=== PATIENT | male | born 2000 | race Two or more races ===

== ENCOUNTER 2024-01-18 09:05 | Emergency (ER) | payer BC, OTHER ==
[~2024-01-18] VITALS: Ht 177.8 cm; Wt 113.8 kg
[2024-01-18 09:38] LABS: Basophils # (auto) 0 10 ^3/uL (0-0.2); Basophils % (auto) 0.3 % (0.0-2.0); Eosinophils # (auto) 0.3 10 ^3/uL (0-0.8); Eosinophils % (auto) 2.9 % (0.0-7.0); Hematocrit 46.2 % (41.0-53.0); Hemoglobin 15.6 g/dL (13.5-17.5); Lymphocytes # (auto) 2.6 10 ^3/uL (0.4-5.4); Lymphocytes % (auto) 24.4 % (10.0-50.0); Mean Corpuscular Hemoglobin 27.4 pg (28.0-32.0); Mean Corpuscular Hgb Conc. 33.7 g/dL (32.0-36.0); Mean Corpuscular Volume 81.3 fL (80.0-100.0); Monocytes # (auto) 0.8 10 ^3/uL (0-1.3); Monocytes % (auto) 7.9 % (0.0-12.0); Neutrophils # (auto) 6.9 10 ^3/uL (1.6-8.6); Neutrophils % (auto) 64.5 % (37.0-80.0); Nucleated Red Blood Cells % 0.1 %; Red Blood Cells 5.68 10^6/uL (4.5-5.90); Red Cell Distribution Width 13.8 % (11.8-14.3); White Blood Cell 10.7 10^3/uL (4.4-10.8)
[2024-01-18 09:49] LABS: Alanine Aminotransferase 29 U/L (7-40); Albumin 4.6 g/dL (3.2-4.8); Alkaline Phosphatase 61 U/L (46-116); Anion Gap 4 (5-15); Aspartate Aminotransferase 11 U/L (13-40); BUN/Creatinine Ratio 10.1 (10.0-20.0); Blood Urea Nitrogen 8 mg/dL (9-23); Calcium 9.7 mg/dL (8.5-10.1); Carbon Dioxide 29 mmol/L (20-30); Chloride 107 mmol/L (98-107); Glucose 121 mg/dL (74-106); Potassium 3.9 mmol/L (3.5-5.1); Sodium 140 mmol/L (136-145)
[2024-01-18 09:50] LABS: Bilirubin, Total 0.8 mg/dL (0.2-1.0); Total Protein 7.4 g/dL (5.7-8.2)
[2024-01-18 11:25] LABS: Urine Bacteria None Seen /hpf (None Seen)
[2024-01-18 11:54] LABS: Urine Blood Negative /uL (Negative); Urine Clarity Clear (Clear); Urine Color Yellow (Yellow); Urine Protein, UAD 1+ (Negative); Urine Specific Gravity 1.027 (1.001-1.035); Urine Urobilinogen Normal (Negative); Urine WBC 1 /hpf (0 - 3); Urine pH 6.5 (5.0-9.0)
[2024-01-18 15:44] VITALS: BP 110/78; PULSE 59; RESP 17; TEMP 98.9; O2SAT 97
== END 2024-01-18 15:45 | disposition home or self-care (01) ==
LOC: ER 09:05
DX: R55 Syncope and collapse (principal); R42 Dizziness and giddiness; F10.10 Alcohol abuse, uncomplicated; F12.10 Cannabis abuse, uncomplicated
CPT/HCPCS: 36415; 70450; 71046; 80053; 81001; 85025

== ENCOUNTER 2024-10-08 09:22 | Emergency (ER) | payer BC ==
[~2024-10-08] VITALS: Ht 175.3 cm; Wt 123.8 kg
[2024-10-08 10:16] LABS: Basophils # (auto) 0.1 10 ^3/uL (0-0.2); Basophils % (auto) 0.7 % (0.0-2.0); Eosinophils # (auto) 0.4 10 ^3/uL (0-0.8); Eosinophils % (auto) 4.9 % (0.0-7.0); Hematocrit 47.9 % (41.0-53.0); Lymphocytes % (auto) 22.7 % (10.0-50.0); Mean Corpuscular Hemoglobin 26.5 pg (28.0-32.0); Mean Corpuscular Hgb Conc. 33.3 g/dL (32.0-36.0); Mean Corpuscular Volume 79.7 fL (80.0-100.0); Monocytes # (auto) 0.7 10 ^3/uL (0-1.3); Monocytes % (auto) 8.4 % (0.0-12.0); Neutrophils # (auto) 5.6 10 ^3/uL (1.6-8.6); Neutrophils % (auto) 63.3 % (37.0-80.0); Nucleated Red Blood Cells % 0.1 %; Platelet Count (auto) 265 10^3/uL (140-450); Red Blood Cells 6.02 10^6/uL (4.5-5.90); Red Cell Distribution Width 13.3 % (11.8-14.3); White Blood Cell 8.8 10^3/uL (4.4-10.8)
--- NOTE | 2024-10-08 10:29 | ED.PDOC ---
HPI (NEURO) HPI Comments 24 y/o M, presents to the ED for CC of syncope. Patient states, that he had a syncopal episode this morning which was witnessed by his . Patient relays, new symptoms of lightheadedness following syncopal episode. Patient denies head injury, fever, headache, fatigue, or N/V/D. No other associated symptom's, modifiers, recent injuries or sick contacts at this time. Chief Complaint: Syncope Time Seen by MD: 10:00 Primary Care Provider: YURIDIA Will Notes: Nurses Notes, Medications, Allergies Information Source: Patient Mode of Arrival: Ambulatory Severity: Moderate Headache Severity: None Timing: Minutes Duration: Since onset Prehospital treatment: None Onset: At rest Circumstances: Spontaneous Symptoms: Faintness, Syncope History of: None Modifying factors: Nothing Associated Signs and Symptoms: None Past Medical History PAST MEDICAL HISTORY: Denies Family History Family History: Reviewed,noncontributory to illness, Unknown Social History Smoker: Other Alcohol: Occasionally Drugs: Marijuana Lives In: Home Constitutional: denies: chills, diaphoresis, fatigue, fever, malaise, sweats, weakness, others EENTM: denies: blurred vision, double vision, ear bleeding, ear discharge, ear drainage, ear pain, ear ringing, eye pain, eye redness, hearing loss, mouth pain, mouth swelling, nasal discharge, nose bleeding, nose congestion, nose pain, photophobia, tearing, throat pain, throat swelling, voice changes, others Respiratory: denies: cough, hemoptysis, orthopnea, SOB at rest, shortness of breath, SOB with excertion, stridor, wheezing, others Cardiovascular: denies: chest pain, dizzy spells, diaphoresis, Dyspnea on exertion, edema, irregular heart beat, left arm pain, lightheadedness, palpitations, PND, syncope, others Gastrointestinal: denies: abdomen distended, abdominal pain, blood streaked bowels, constipated, diarrhea, dysphagia, difficulty swallowing, hematemesis, melena, nausea, poor appetite, poor fluid intake, rectal bleeding, rectal pain, vomiting, others Genitourinary: denies: burning, dysuria, flank pain, frequency, hematuria, incontinence, penile discharge, penile sore, pain, testicle pain, testicle swelling, urgency, others Neurological: reports: dizziness; denies: fainting, headache, left sided numbness, left sided weakness, numbness, paresthesia, pre-existing deficit, right sided numbness, right sided weakness, seizure, speech problems, tingling, tremors, weakness, others Musculoskeletal: denies: back pain, gout, joint pain, joint swelling, muscle pain, muscle stiffness, neck pain, others Integumetry: denies: bruises, change in color, change in hair/nails, dryness, laceration, lesions, lumps, rash, wounds, others Allergic/Immunocompromised: denies: Difficulty Healing, Frequent Infections, Hives, Itching, others Hematologic/Lymphatic: denies: anemia, blood clots, easy bleeding, easy bruising, swollen glands, others Endocrine: denies: excessive hunger, excessive sweating, excessive thirst, excessive urination, flushing, intolerance to cold, intolerance to heat, unexplained weight gain, unexplained weight loss, others Psychiatric: denies: anxiety, bipolar disorder, depression, hopeless, panic disorder, schizophrenia, sleepless, suicidal, others All Other Systems: Reviewed and Negative Physical Exam General Appearance: Moderate Distress HEENT: Normal ENT Inspection, Pharynx Normal, TMs Normal Neck: Full Range of Motion, Non-Tender, Normal, Normal Inspection Respiratory: Chest Non-Tender, Lungs Clear, No Accessory Muscle Use, No Respiratory Distress, Normal Breath Sounds Cardiovascular: No Edema, No JVD, No Murmur, No Gallop, Normal Peripheral Pulses, Regular Rate/Rhythm Breast Exam: Deferred Gastrointestinal: No Organomegaly, Non Tender, No Pulsatile Mass, Normal Bowel Sounds, Soft Genitalia: Deferred Pelvic: Deferred Rectal: Deferred Extremities: No calf tenderness, Normal capillary refill, Normal inspection, Normal range of motion, Non-tender, No pedal edema Musculoskeletal : Apperance: Normal Neurologic: Alert, shot lighter II-XII nml as Tested, No Motor Deficits, Normal Affect, Normal Mood, No Sensory Deficits Cerebellar Function: Normal Reflexes: Normal Skin: Dry, Normal Color, Warm Peripheral Pulses: 3+ Radial (R), 3+ Radial (L) Lymphatic: No Adenopathy Was a procedure done? Was a procedure done?: No Differential Diagnosis (SZ) Seizure: Psychogenic Seizure, Closed Head Injury, CVA/TIA General Weakness: Dehydration, Electrolyte imbalance, Hypoglycemia, Hypotension, Vertigo: central, Vertigo: peripheral, Vestibular neuronitis X-Ray, Labs, Meds, VS Vital Signs Date Time Temp Pulse Resp B/P (MAP) Pulse Ox O2 Delivery O2 Flow Rate FiO2 10/08/24 10:33 98.4 61 16 121/77 (92) 96 98.4 10/08/24 10:33 61 16 96 Room Air* 0 21 10/08/24 09:44 55 10/08/24 09:43 98.4 60 16 128/76 (93) 97 Lab Test 10/08/24 10:40 10/08/24 09:57 10/08/24 09:49 Range/Units Urine Opiates Screen Neg NEGATIVE Urine Fentanyl Screen Neg NEGATIVE Urine Barbiturates Screen Neg NEGATIVE Urine Phencyclidine Screen Neg NEGATIVE Urine Amphetamines Screen Neg NEGATIVE Urine Benzodiazepines Screen Neg NEGATIVE Urine Cocaine Screen Neg NEGATIVE Urine Cannabinoids Screen Pos NEGATIVE White Blood Count 8.8 4.4-10.8 10^3/uL Red Blood Count 6.02 H 4.5-5.90 10^6/uL Hemoglobin 16.0 13.5-17.5 g/dL Hematocrit 47.9 41.0-53.0 % Mean Corpuscular Volume 79.7 L 80.0-100.0 fL Mean Corpuscular Hemoglobin 26.5 L 28.0-32.0 pg Mean Corpuscular Hemoglobin Concent 33.3 32.0-36.0 g/dL Red Cell Distribution Width 13.3 11.8-14.3 % Platelet Count 265 140-450 10^3/uL Mean Platelet Volume 7.5 6.9-10.8 fL Neutrophils (%) (Auto) 63.3 37.0-80.0 % Lymphocytes (%) (Auto) 22.7 10.0-50.0 % Monocytes (%) (Auto) 8.4 0.0-12.0 % Eosinophils (%) (Auto) 4.9 0.0-7.0 % Basophils (%) (Auto) 0.7 0.0-2.0 % Neutrophils # (Auto) 5.6 1.6-8.6 10 ^3/uL Lymphocytes # (Auto) 2.0 0.4-5.4 10 ^3/uL Monocytes # (Auto) 0.7 0-1.3 10 ^3/uL Eosinophils # (Auto) 0.4 0-0.8 10 ^3/uL Basophils # (Auto) 0.1 0-0.2 10 ^3/uL Nucleated Red Blood Cells 0.1 % Sodium Level Pending Potassium Level Pending Chloride Level Pending Carbon Dioxide Level Pending Anion Gap Pending Blood Urea Nitrogen Pending Creatinine Pending Glomerular Filtration Rate Calc Pending BUN/Creatinine Ratio Pending Serum Glucose Pending Calcium Level Pending Troponin I High Sensitivity Pending POC Glucose 117 H 70-106 mg/dl Patient alert. Vitals stable. Answering questions. Good muscle strength. No sign of distress. No trauma. Possible vasovagal. Blood sugar within normal limits. WBC within normal limits. Hemoglobin within normal limits. UDS show marijuana. No leg swelling. No shortness a breath. No headache. No dizziness. CT scan of the head was not done because physical examination was pristine with good mentation no headache no dizziness no nausea no vomiting. Explained to the patient. Satisfied with the treatment plan. Was told to follow up with his primary care physician. Was told to come back if there is any problem. Time of 1ST Reevaluation: 10:30 Reevaluation 1ST: Unchanged Patient Education/Counseling: Diagnosis, Treatment Family Education/Counseling: No Family Present Departure 1 Departure Time of Disposition: 11:30 Impression: Primary Impression: Autonomic disorder Additional Impression: Vasovagal response Disposition: HOME / SELF CARE / HOMELESS Condition: Good Discharged With: Self Critical Care Note Critical Care Time?: No Stability Stability form required: No Heart Score Heart Score: Heart Score Response (Comments) Value History N/A 0 EKG N/A 0 Age N/A 0 Risk Factors N/A 0 Troponin N/A 0 Total 0 I personally scribed for TIFFANY ROCHA MD ([email or web address]) on 10/08/24 at 10:29. Electronically submitted by Florinda Chang ([email or web address]). TIFFANY ROCHA MD Oct 08, 2024 10:29
[2024-10-08 10:33] VITALS: BP 121/77; PULSE 61; RESP 16; TEMP 98.4; O2SAT 96
[2024-10-08 11:21] LABS: Cannabinoid Screen, Urine Pos (NEGATIVE)
[2024-10-08 11:25] LABS: Amphetamine Screen, Urine Neg (NEGATIVE); Barbiturate Scree,Urine Neg (NEGATIVE); Benzodiazephine Screen, Urine Neg (NEGATIVE); Cocaine Screen, Urine Neg (NEGATIVE); Opiate Scree,Urine Neg (NEGATIVE); Phencyclidine Screen, Urine Neg (NEGATIVE)
[2024-10-08 11:26] LABS: Chloride 105 mmol/L (98-107); Potassium 3.9 mmol/L (3.5-5.1); Sodium 141 mmol/L (136-145)
[2024-10-08 11:27] LABS: Anion Gap 9 (5-15); Carbon Dioxide 27 mmol/L (20-31)
[2024-10-08 11:28] LABS: Calcium 10.3 mg/dL (8.7-10.4)
[2024-10-08 11:32] LABS: Blood Urea Nitrogen 9 mg/dL (9-23); Glucose 98 mg/dL (74-106)
--- NOTE | 2024-10-09 09:36 | ECG ---
[facility] Test Date: 2024-10-08 Test Time: 09:44:02 Pat Name: BLAS PEÑALOZA Department: ER Room: Gender: M General Foreman: CLARIBEL : 2000 Requested By: TIFFANY ROCHA Order Number: [id number] Reading MD: Taj Hart Measurements Intervals [place] Rate: 55 P: -6 MA: 134 QRS: 113 QRSD: 98 T: 51 QT: 408 QTc: 391 Interpretive Statements Sinus rhythm Right axis deviation Electronically Signed On 10-10-2024 17:45:52 PST by Taj Hart Please click the below link to view image of tracing.
== END 2024-10-08 12:42 | disposition home or self-care (01) ==
LOC: ER 09:22
DX: R55 Syncope and collapse (principal); D89.89 Other specified disorders involving the immune mechanism, not elsewhere classified
CPT/HCPCS: 36415; 80048; 80307; 82962; 84484; 85025; 93005

== ENCOUNTER 2024-12-27 10:10 | Emergency (ER) | payer BC ==
[~2024-12-27] VITALS: Ht 175.3 cm; Wt 127.0 kg
[2024-12-27] MEDS ORDERED: DIPH25CA66 PO (10:19)
[2024-12-27] MEDS ORDERED: PRED20TA2 PO (10:19)
[2024-12-27] MEDS ORDERED: TRIO1TP EX (10:19)
--- NOTE | 2024-12-27 10:21 | ED.PDOC ---
History of Present Illness HPI Comments rash Comments itchy rash on hands after exposure to latex gloves at work. no other symptoms. not taking any medications Time Seen by MD: 10:12 Primary Care Provider: YURIDIA Reviewed Notes: Nurses Notes, Medications, Allergies Allergies: Coded Allergies: Pork (Porcine) Protein (Verified Allergy, Unknown, 01/18/24) Information Source: Patient Mode of Arrival: Ambulatory Severity: Mild Timing: Weeks (2) Duration: Since onset Location: hands Quality itch rash Associated signs and symptoms none Past Medical History PAST MEDICAL HISTORY: Denies Surgical History: Denies all surgeries Family History Family History: Reviewed,noncontributory to illness, Unknown Social History Smoker: Other Alcohol: Occasionally Drugs: Marijuana Lives In: Home Constitutional: denies: chills, diaphoresis, fatigue, fever, malaise, sweats, weakness, others EENTM: denies: blurred vision, double vision, ear bleeding, ear discharge, ear drainage, ear pain, ear ringing, eye pain, eye redness, hearing loss, mouth pain, mouth swelling, nasal discharge, nose bleeding, nose congestion, nose p ain, photophobia, tearing, throat pain, throat swelling, voice changes, others Respiratory: denies: cough, hemoptysis, orthopnea, SOB at rest, shortness of breath, SOB with excertion, stridor, wheezing, others Cardiovascular: denies: chest pain, dizzy spells, diaphoresis, Dyspnea on exertion, edema, irregular heart beat, left arm pain, lightheadedness, palpitations, PND, syncope, others Gastrointestinal: denies: abdomen distended, abdominal pain, blood streaked bowels, constipated, diarrhea, dysphagia, difficulty swallowing, hematemesis, melena, nausea, poor appetite, poor fluid intake, rectal bleeding, rectal pain, vomiting, others Genitourinary: denies: burning, dysuria, flank pain, frequency, hematuria, incontinence, penile discharge, penile sore, pain, testicle pain, testicle swelling, urgency, others Neurological: denies: dizziness, fainting, headache, left sided numbness, left sided weakness, numbness, paresthesia, pre-existing deficit, right sided numbness, right sided weakness, seizure, speech problems, tingling, tremors, weakness, others Musculoskeletal: denies: back pain, gout, joint pain, joint swelling, muscle pain, muscle stiffness, neck pain, others Integumetry: reports: rash; denies: bruises, change in color, change in hair/nails, dryness, laceration, lesions, lumps, wounds, others Allergic/Immunocompromised: denies: Difficulty Healing, Frequent Infections, Hives, Itching, others Hematologic/Lymphatic: denies: anemia, blood clots, easy bleeding, easy bruising, swollen glands, others Physical Exam General Appearance: No Apparent Distress, Normal HEENT: Normal ENT Inspection, Pharynx Normal, TMs Normal Neck: Full Range of Motion, Non-Tender, Normal, Normal Inspection Respiratory: Chest Non-Tender, Lungs Clear, No Accessory Muscle Use, No Respiratory Distress, Normal Breath Sounds Cardiovascular: No Edema, No JVD, No Murmur, No Gallop, Normal Peripheral Pulses, Regular Rate/Rhythm Breast Exam: Deferred Gastrointestinal: No Organomegaly, Non Tender, No Pulsatile Mass, Normal Bowel Sounds, Soft Genitalia: Deferred Pelvic: Deferred Rectal: Deferred Extremities: No calf tenderness, Normal capillary refill, Normal inspection, Normal range of motion, Non-tender, No pedal edema Musculoskeletal : Apperance: Normal Neurologic: Alert, it manager II-XII nml as Tested, No Motor Deficits, Normal Affect, Normal Mood, No Sensory Deficits Cerebellar Function: Normal Reflexes: Normal Skin: Dry, Normal Color, Rash (urticarial rash on dorsum of hands), Warm Lymphatic: No Adenopathy Was a procedure done? Was a procedure done?: No Differential Dx Considerations may include: cellulitis, urticaria, contusions Time of 1ST Reevaluation: 10:18 Reevaluation 1ST: Unchanged Patient Education/Counseling: Diagnosis, Treatment, Prognosis, Need For Follow Up Family Education/Counseling: No Family Present Additional Information pt has contact dermatitis triggered by latex. he has avoided trigger since, but rash has not subsided. there are no signs of cellulitis, no desquamation, no palmar involvement. no other areas of the body involved. i will start him on topical steroid, prednisone, and benadryl Departure 1 Departure Time of Disposition: 10:18 Impression: Primary Impression: Latex allergy, contact dermatitis Disposition: HOME / SELF CARE / HOMELESS Condition: Good e-Prescriptions Triamcinolone Acetonide (Triamcinolone Acetonide) 0.1 % Cre 0.1 % EX BID, #1 CRE Prov: CARLINE FRIEND MD 12/27/24 Prednisone (Prednisone) 20 Mg Tab 20 MG PO DAILY for 5 Days, #5 TAB Prov: CARLINE FRIEND MD 12/27/24 Diphenhydramine Hcl (Benadryl Allergy) 25 Mg Cap 1 CAP PO Q6HP PRN, #30 CAP 1 Refill Prov: CARLINE FRIEND MD 12/27/24 Discharged With: Self Critical Care Note Critical Care Time?: No Stability Stability form required: No CARLINE FRIEND MD December 27, 2024 10:21
[2024-12-27 10:25] VITALS: BP 128/63; PULSE 51; RESP 16; TEMP 98.1; O2SAT 95
== END 2024-12-27 10:30 | disposition home or self-care (01) ==
LOC: ER 10:10
DX: L23.89 Allergic contact dermatitis due to other agents (principal); F17.200 Nicotine dependence, unspecified, uncomplicated; F19.90 Other psychoactive substance use, unspecified, uncomplicated; F10.90 Alcohol use, unspecified, uncomplicated; Y90.9 Presence of alcohol in blood, level not specified; Z91.040 Latex allergy status; Z88.8 Allergy status to other drugs, medicaments and biological substances

== ENCOUNTER 2025-02-11 11:15 | Emergency (ER) | payer BC ==
[~2025-02-11] VITALS: Ht 175.3 cm; Wt 125.3 kg
[~2025-02-11 11:15] MED LIST: DIPH25CA66 PO; PRED20TA2 PO; TRIO1TP EX
--- NOTE | 2025-02-11 12:02 | ED.PDOC ---
HPI (NEURO) HPI Comments HPI: 25 y/o M, with no previous medical history presents to the ED for CC of s/p syncopal episode. Patient states, that he had a syncopal episode at 0530 lasting approximately 5 min. Patient relays, hitting his and losing consciousness. Patient comments, that he has been having syncopal episodes monthly for x1year. Patient reports, being seen prior for symptoms however, never being worked up d/t outside responsibilities. Patient c/o current head pain and nausea. Patient denies open wounds, active bleeding, or vomiting. No other symptoms or modifying factors present at this time. Initial Vitals BP: HR: RR: O2: Temp: Past Medical History: DENIES ANY Past Surgical History: DENIES ANY Social History: Denies ETOH, smoking, and drug use. Medications: DENIES ANY Allergies: LATEX, PORK galvez: syncope HPI: Poor Historian. Past Medical History: Past Surgical History: REVIEW OF SYSTEMS: CONSTITUTIONAL: Denies acute: fever, diaphoresis, chills, generalized weakness. HEAD: Denies acute: photophobia Eyes: Denies acute: Double vision, vision loss, eye pain, eye discharge. EARS: Denies acute: tinnitus, hearing loss, ear discharge, ear pain, THROAT: Denies acute: sore throat, swelling, difficulty swallowing , pain with swallowing, change in voice. NECK: Denies acute: neck pain, neck swelling, stiff neck. HEART: Denies acute : chest pain, palpitations, LUNGS: Denies acute: SOB, wheezing, cough, hemoptysis ABDOMEN: Denies acute: abdominal pain, Nausea, Vomiting, diarrhea, melena , hematemesis, hematochezia SKIN: Denies acute: rash, redness, lesions, itchiness. EXTREMITIES: Denies acute: calf pain, numbness, tingling, weakness, denies pain in extremity. Denies acute: Low back pain. Neuro: Denies acute: focal neurological deficit, motor or sensory focal neurological deficit, tremors, seizure like activity, confusion, dizziness, change in mental status, loss of bowel or bladder function, cauda equina like symptoms. : Denies acute: dysuria, hematuria, flank pain, increase in urinary frequency. PSYCH: Denies acute: hallucination, suicidal ideation, homicidal ideation. PHYSICAL EXAM: General: ---no-----acute distress, awake and alert. Head: normocephalic, atraumatic. Neck: supple, trachea is midline, no swelling. Throat: Normal phonation. Eyes:, no erythema, no purulent discharge, no proptosis, no icterus. Heart: regular rate, regular rhythm, no significant murmur appreciated. Lungs: no apparent respiratory distress, Able to speak in full sentences. No wheezing, no rhonchi, no crackles. No stridors Clear to auscultation bilaterally. Abdomen: non tender to palpation, non distended, soft, no guarding, no rebound, + bowel sounds. Obese Neuro: Awake, Alert, oriented to name, self, situation, follows commands GCS=15. Speech is normal. Skin: no petechia, no purpura, no cyanosis, non-pale, not jaundice. Lower extremities: --no - Pitting edema no deformity, no focal swelling, no calf TTP. Makes eye contact. moves all four extremities. Face: no apparent facial droop. Ambulating in the ED independently. Ears: Normal appearing TM b/l, Stroke: finger to nose cerebellar testing is intact. No pronator drift. Symmetrical inclusion internship muscle strength b/l PERRLA, EOM-I CN 2-12 are grossly intact, No nystagmus. No nuchal rigidity, Kernig's sign, Brudzinski's sign, no meningeal signs. ED COURSE: DISCLAIMER: This medical document was created using an electronic medical record system with voice recognition software and computerized dictation system. Although this document has been carefully reviewed, there might still be some phonetic and typographical errors. Occasional wrong-word or "sound-alike" substitutions may have occurred due to the inherent limitations of voice recognition software. These areas are purely typographical due to imperfections of the software programs and do not reflect any compromise in the patient's medical care. Please read the chart carefully and recognize, using context, where these substitutions have occurred. Chief Complaint: Syncope Time Seen by MD: 11:45 Primary Care Provider: PHILLIP Reviewed Notes: Nurses Notes, Medications, Allergies Information Source: Patient Mode of Arrival: Ambulatory Severity: Moderate Dizziness/Weakness Severity: Unable to do activities Headache Severity: Moderate Timing: Months Duration: Since onset Differential Diagnosis (SZ) Seizure: Hypoglycemia, Epilepsy-Break Through, Epilepsy-Status General Weakness: Dehydration Headache: N/A X-Ray, Labs, Meds, VS Vital Signs Date Time Temp Pulse Resp B/P (MAP) Pulse Ox O2 Delivery O2 Flow Rate FiO2 02/11/25 13:06 98.1 59 20 114/70 (85) 97 98.1 02/11/25 13:06 59 20 97 Room Air 02/11/25 11:27 73 02/11/25 11:26 97.6 75 17 125/71 (89) 97 97.6 Lab Test 02/11/25 12:46 02/11/25 12:40 02/11/25 12:00 02/11/25 11:25 Range/Units Troponin I High Sensitivity < 3 L < 3 L </=54 ng/L Urine Color Pending Urine Clarity Pending Urine pH Pending Urine Specific [place] Pending Urine Protein Pending Urine Ketones Pending Urine Blood Pending Urine Nitrite Pending Urine Bilirubin Pending Urine Urobilinogen Pending Urine Leukocyte Esterase Pending Urine RBC Pending Urine Microscopic WBC Pending Urine Squamous Epithelial Cells Pending Urine Bacteria Pending Urine Glucose Pending White Blood Count 9.4 4.4-10.8 10^3/uL Red Blood Count 5.90 4.5-5.90 10^6/uL Hemoglobin 15.9 13.5-17.5 g/dL Hematocrit 46.8 41.0-53.0 % Mean Corpuscular Volume 79.3 L 80.0-100.0 fL Mean Corpuscular Hemoglobin 27.0 L 28.0-32.0 pg Mean Corpuscular Hemoglobin Concent 34.0 32.0-36.0 g/dL Red Cell Distribution Width 13.8 11.8-14.3 % Platelet Count 263 140-450 10^3/uL Mean Platelet Volume 7.9 6.9-10.8 fL Neutrophils (%) (Auto) 72.0 37.0-80.0 % Lymphocytes (%) (Auto) 20.5 10.0-50.0 % Monocytes (%) (Auto) 5.3 0.0-12.0 % Eosinophils (%) (Auto) 1.8 0.0-7.0 % Basophils (%) (Auto) 0.4 0.0-2.0 % Neutrophils # (Auto) 6.8 1.6-8.6 10 ^3/uL Lymphocytes # (Auto) 1.9 0.4-5.4 10 ^3/uL Monocytes # (Auto) 0.5 0-1.3 10 ^3/uL Eosinophils # (Auto) 0.2 0-0.8 10 ^3/uL Basophils # (Auto) 0 0-0.2 10 ^3/uL Nucleated Red Blood Cells 0.1 % Sodium Level 142 136-145 mmol/L Potassium Level 3.7 3.5-5.1 mmol/L Chloride Level 107 98-107 mmol/L Carbon Dioxide Level 25 20-31 mmol/L Anion Gap 10 5-15 Blood Urea Nitrogen 9 9-23 mg/dL Creatinine 0.81 0.700-1.30 mg/dL Glomerular Filtration Rate Calc 125 >90 mL/min BUN/Creatinine Ratio 11.1 10.0-20.0 Serum Glucose 138 H 74-106 mg/dL Calcium Level 10.3 8.7-10.4 mg/dL Total Bilirubin 1.3 H 0.2-1.0 mg/dL Aspartate Amino Transferase (AST) 19 13-40 U/L Alanine Aminotransferase (ALT) 28 7-40 U/L Alkaline Phosphatase 61 46-116 U/L Total Protein 7.5 5.7-8.2 g/dL Albumin 4.8 3.2-4.8 g/dL Thyroid Stimulating Hormone (TSH) 0.81 0.55-4.78 uIU/mL POC Glucose 212 H 70-106 mg/dl [place] [id number] Ph: [phone] DIAGNOSTIC IMAGING Diagnostic Imaging Report : [id number] Signed PATIENT: BLAS GALVEZ ACCT: [id number] UNIT: [id number] : 2000 LOC: ER ROOM / BED: / AGE / SEX: 25 / M ADM STATUS: REG ER SERVICE 1212 ORDERING PHYSICIAN: PRESTON HANDLEY DO PROCEDURE(s): [place] - ANGIO HEAD/Neck REASON: Multiple episodes of syncope and collapse; ? closed head inj ORDER NUMBER(s): [id number], ACCESSION NUMBER(s): [id number] EXAM: CT ANGIO HEAD/NECK HISTORY: Multiple episodes of syncope and collapse; closed head inj COMPARISON: None TECHNIQUE: Noncontrast axial CT images of the head were performed. Sagittal and coronal reformatted images were obtained. High-resolution helical CT images of the head and neck were performed with IV contrast utilizing CTA protocol. Sagittal and coronal reformatted images and 3-D MIP reconstructions were obtained. This CT exam was performed using one or more of the following dose reduction techniques: Automated exposure control, adjustment of the mA and/or kV according to patient size, or use of iterative reconstruction technique. Radiation Dose: CT Dose: CTDI volume is 22.24 mGy. Dose-length product is 1615.45 mGy*cm FINDINGS: Noncontrast CT head: No intracranial hemorrhage, mass, midline shift, hydrocephalus, or evidence of acute large vessel infarct. There is cerebellar tonsillar ectopia without evidence of Chiari I malformation. The mastoid air cells, middle ear spaces, and paranasal sinuses are clear. No cranial fracture or scalp edema. [place]: No evidence of aneurysmal dilatation or significant stenosis about the [place]. The bilateral MCAs, ACAs, and senior data modeler are widely patent. The cavernous and petrous ICAs are patent. Right carotid system: No significant stenosis of the CCA, ICA, or ECA origin. Left carotid system: No significant stenosis of the CCA, ICA, or ECA origin. Vertebrobasilar: The bilateral vertebral arteries and basilar artery are patent. The vertebral arteries are codominant. Miscellaneous: The central pulmonary arteries are ectatic, not fully imaged here. Bovine aortic arch is incidentally noted. The cervical spinal canal sade enitally narrow. There is mild cervical degenerative disc disease. There is pantonsillar hypertrophy with mild narrowing of the upper airway, without evidence of tonsillar abscess. There are multiple dental caries. IMPRESSION: 1. No acute intracranial process. 2. No aneurysmal dilatation or significant stenosis about the [place]. 3. No significant stenosis of the bilateral cervical carotid arteries or vertebral arteries. 4. Pulmonary arterial hypertension. 5. Multiple dental caries. Recommend outpatient dental consultation. 6. Pantonsillar hypertrophy with mild narrowing of the upper airway, without evidence of tonsillar abscess. 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 ATED BY: JEZ BARLOW MD DICTATED DATE/TIME: 02/11/25 1350 SIGNED BY: JEZ BARLOW MD SIGNED DATE/TIME: 02/11/25 1350 CC: Time of 1ST Reevaluation: 12:15 Reevaluation 1ST: Unchanged Time of 2ND Reevaluation: 14:51 (The case was discussed with the admitting team (HPI, physical exam, labs and diagnostic tests that were available at the time of disposition, ED course, treatment plan) on the phone. They agreed to admit the patient to their service and assume care of this patient from this point forward. --- Brenna. ) Patient Education/Counseling: Diagnosis, Treatment Family Education/Counseling: No Family Present Departure 1 Departure Time of Disposition: 14:50 Impression: Primary Impression: Syncope and collapse Additional Impression: Closed head injury Disposition: ADMITTED INPATIENT Admit to: Tele Condition: Guarded Discharged With: Self Critical Care Note Critical Care Time?: No I personally scribed for PRESTON HANDLEY DO ([email or web address]) on 02/11/25 at 12:02. Electronically submitted by Florinda Chang ([email or web address]). I personally scribed for PRESTON HANDLEY DO ([email or web address]) on 02/11/25 at 14:50. Electronically submitted by Florinda Chang ([email or web address]). PRESTON HANDLEY DO Feb 11, 2025 12:02
[2025-02-11 12:25] LABS: Hematocrit 46.8 % (41.0-53.0); Hemoglobin 15.9 g/dL (13.5-17.5); Mean Corpuscular Hemoglobin 27.0 pg (28.0-32.0); Mean Corpuscular Volume 79.3 fL (80.0-100.0); Nucleated Red Blood Cells % 0.1 %
[2025-02-11 12:40] LABS: Alanine Aminotransferase 28 U/L (7-40); Albumin 4.8 g/dL (3.2-4.8); Alkaline Phosphatase 61 U/L (46-116); Anion Gap 10 (5-15); BUN/Creatinine Ratio 11.1 (10.0-20.0); Blood Urea Nitrogen 9 mg/dL (9-23); Calcium 10.3 mg/dL (8.7-10.4); Carbon Dioxide 25 mmol/L (20-31); Chloride 107 mmol/L (98-107); Potassium 3.7 mmol/L (3.5-5.1); Sodium 142 mmol/L (136-145); Total Protein 7.5 g/dL (5.7-8.2)
[2025-02-11 12:41] LABS: Bilirubin, Total 1.3 mg/dL (0.2-1.0); Glucose 138 mg/dL (74-106)
[2025-02-11] MEDS: IOHEXOL 350 MG/ML 100ML IJ ONE (12:54)
--- NOTE | 2025-02-11 13:22 | DVH ---
CHEST RADIOGRAPH Indication: syncope and collapse, closed head injury Technique: Single frontal view of the chest was obtained Comparison: None FINDINGS: Lines and Tubes: None Lungs: No focal consolidation. Pleura: No effusion. No pneumothorax. Cardiomediastinal contours: Unremarkable Bones: No acute osseous abnormality. IMPRESSION: No acute cardiopulmonary disease.
--- NOTE | 2025-02-11 13:52 | DVH ---
EXAM: CT ANGIO HEAD/NECK HISTORY: Multiple episodes of syncope and collapse; closed head inj COMPARISON: None TECHNIQUE: Noncontrast axial CT images of the head were performed. Sagittal and coronal reformatted images were obtained. High-resolution helical CT images of the head and neck were performed with IV contrast utilizing CTA protocol. Sagittal and coronal reformatted images and 3-D MIP reconstructions were obtained. This CT exam was performed using one or more of the following dose reduction techniques: Automated exposure c ontrol, adjustment of the mA and/or kV according to patient size, or use of iterative reconstruction technique. Radiation Dose: CT Dose: CTDI volume is 22.24 mGy. Dose-length product is 1615.45 mGy*cm FINDINGS: Noncontrast CT head: No intracranial hemorrhage, mass, midline shift, hydrocephalus, or evidence of a cute large vessel infarct. There is cerebellar tonsillar ectopia without evidence of Chiari I malform ation. The mastoid air cells, middle ear spaces, and paranasal sinuses are clear. No cranial fracture or scalp edema. [place]: No evidence of aneurysmal dilatation or significant stenosis about the [place]. The bilateral MCAs, ACAs, and lpc are widely patent. The cavernous and petrous ICAs are patent . Right carotid system: No significant stenosis of the CCA, ICA, or ECA origin. Left carotid system: No significant stenosis of the CCA, ICA, or ECA origin. Vertebrobasilar: The bilateral vertebral arteries and basilar artery are patent. The vertebral arteri es are codominant. Miscellaneous: The central pulmonary arteries are ectatic, not fully imaged here. Bovine aortic arch is incidentally noted. The cervical spinal canal congenitally narrow. There is mild cervical degener ative disc disease. There is pantonsillar hypertrophy with mild narrowing of the upper airway, witho ut evidence of tonsillar abscess. There are multiple dental caries. IMPRESSION: 1. No acute intracranial process. 2. No aneurysmal dilatation or significant stenosis about the [place]. 3. No significant stenosis of the bilateral cervical carotid arteries or vertebral arteries. 4. Pulmonary arterial hypertension. 5. Multiple dental caries. Recommend outpatient dental consultation. 6. Pantonsillar hypertrophy with mild narrowing of the upper airway, without evidence of tonsillar ab scess. 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
[2025-02-11 14:08] LABS: Urine Amorphous Crystal FEW /hpf (None Seen); Urine Protein, UAD TRACE (Negative)
[2025-02-11 15:10] VITALS: BP 118/62; PULSE 57; RESP 16; TEMP 98.6; O2SAT 97
--- NOTE | 2025-02-12 10:03 | DVHDS2 ---
New Physician D'charge PN Admitting Diagnosis Admitting Diagnosis syncope Discharge Diagnosis near syncope Operations or Procedures none Reason(s) For Hospitalization Surgery Hospital Course 25 M who comes to ER c/o near syncope. Patient states he felt dizzy and had to sit down. He states he has been having these episodes on and off but they are not frequent. When he arrived tot ER he was awake and alert with no complaints. He has a head/neck CTA done which showed no acute abnormalities. His EKG revealed sinus rhythm and vitals signs were are nml with no evidence of hypotension or tachycardia. His laboratory data including CBC/BMP and troponin were all negative. He was monitored on tele and remained stable with no other episodes of syncope. He will be discharged home and will arrange for outpt cardiology follow up for echo and syncope work up. Patient is agreeable to plan of care and requested an off note work for a week which has been given to the patient by me. He has been instructed to return to the ER or call 911 should his symptoms worsen. He expressed understanding. [facility] to arrange for all outpt follow up. Treatment Plan Discharge Condition of Discharge Good Disposition Home Discharge Instructions Diet: Regular Activity: No Restrictions, As Tolerated Medications: see med sheet Follow Up Care Follow Up/Referral: pcp Discharge Statement: "Patient was advised to return to the ER or call 911 if any headaches, dizziness, shortness of breath, chest pain, abdominal pain, bleeding, fevers, or worsening of medical condition. Patient was counseled about treatment plan, medications, possible side effects, patientverbalized understanding. All questions were answered to the best of my ability. This discharge took greater then 30 minutes in planning, reviewing documentation, counseling the patient, and discussing with other team members." MEGHAN WADE MD Feb 12, 2025 10:03
--- NOTE | 2025-02-13 06:39 | ECG ---
[facility] Test Date: 2025-02-11 Test Time: 11:27:22 Pat Name: BLAS PEÑALOZA Department: ER Room: Gender: M Consumer Marketing Analyst: JAGUAR : 2000 Requested By: PRESTON HANDLEY Order Number: [id number] Reading MD: Measurements Intervals [place] Rate: 73 P: 53 DC: 150 QRS: 116 QRSD: 97 T: 59 QT: 391 QTc: 431 Interpretive Statements Sinus arrhythmia Right axis deviation Please click the below link to view image of tracing.
== END 2025-02-11 15:23 | disposition home or self-care (01) ==
LOC: ER 11:15
DX: S09.90XA Unspecified injury of head, initial encounter (principal); R55 Syncope and collapse; Z79.899 Other long term (current) drug therapy; X58.XXXA Exposure to other specified factors, initial encounter; Y93.89 Activity, other specified; Y92.89 Other specified places as the place of occurrence of the external cause; Y99.8 Other external cause status
CPT/HCPCS: 36415; 70496; 70498; 71045; 80053; 81001; 82947; 84443; 84484; 85025; 93005; 99285; Q9967; 82962

== ENCOUNTER 2025-02-22 18:00 | Emergency (ER) | payer BC ==
[~2025-02-22] VITALS: Ht 175.3 cm; Wt 121.6 kg
[2025-02-22] MEDS ORDERED: PRED20TA2 PO (18:13)
--- NOTE | 2025-02-22 18:13 | ED.PDOC ---
History of Present Illness(SKN HPI Comments 25-year-old male presents to ER with complaints of rash x1 day. Patient reports he started developing a itchy red rash to hands after he finished removing weeds in his yard yesterday evening. Denies any pain and denies use of medications for current symptoms. Patient presents to ER ambulatory, with steady gait, in no distress with mild urticaria noted to bilateral hands. Denies fever, blistering/drainage or any further symptoms/complaints Chief Complaint: Rash Time Seen by MD: 18:06 Primary Care Provider: PHILLIP History of Present Illness: Nurses Notes, Medications, Allergies Allergies: Coded Allergies: Latex (Verified Allergy, Severe, 12/27/24) Pork (Porcine) Protein (Verified Allergy, Unknown, 01/18/24) Home Meds Active Scripts Prednisone (Prednisone) 20 Mg Tab, 20 MG PO BID for 5 Days, #10 TAB 0 Refills Prov:KYLEE SALDAÑA 02/22/25 Triamcinolone Acetonide (Triamcinolone Acetonide) 0.1 % Cre, 0.1 % EX BID, #1 CRE Prov:CARLINE FRIEND MD 12/27/24 Prednisone (Prednisone) 20 Mg Tab, 20 MG PO DAILY for 5 Days, #5 TAB Prov:CARLINE FRIEND MD 12/27/24 Diphenhydramine Hcl (Benadryl Allergy) 25 Mg Cap, 1 CAP PO Q6HP PRN, #30 CAP 1 Refill Prov:CARLINE FRIEND MD 12/27/24 Information Source: Patient Mode of Arrival: Ambulatory Past Medical History PAST MEDICAL HISTORY: Denies Surgical History: Denies all surgeries Family History Family History: Unknown Social History Smoker: Non-Smoker Alcohol: Occasionally Drugs: Marijuana Lives In: Home Constitutional: denies: chills, diaphoresis, fatigue, fever, malaise, sweats, weakness, others EENTM: denies: blurred vision, double vision, ear bleeding, ear discharge, ear drainage, ear pain, ear ringing, eye pain, eye redness, hearing loss, mouth pain, mouth swelling, nasal discharge, nose bleeding, nose congestion, nose pain, photophobia, tearing, throat pain, throat swelling, voice changes, others Respiratory: denies: cough, hemoptysis, orthopnea, SOB at rest, shortness of breath, SOB with excertion, stridor, wheezing, others Cardiovascular: denies: chest pain, dizzy spells, diaphoresis, Dyspnea on e xertion, edema, irregular heart beat, left arm pain, lightheadedness, palpitations, PND, syncope, others Gastrointestinal: denies: abdomen distended, abdominal pain, blood streaked bowels, constipated, diarrhea, dysphagia, difficulty swallowing, hematemesis, melena, nausea, poor appetite, poor fluid intake, rectal bleeding, rectal pain, vomiting, others Genitourinary: denies: burning, dysuria, flank pain, frequency, hematuria, incontinence, penile discharge, penile sore, pain, testicle pain, testicle swelling, urgency, others Neurological: denies: dizziness, fainting, headache, left sided numbness, left sided weakness, numbness, paresthesia, pre-existing deficit, right sided numbness, right sided weakness, seizure, speech problems, tingling, tremors, weakness, others Musculoskeletal: denies: back pain, gout, joint pain, joint swelling, muscle pain, muscle stiffness, neck pain, others Integumetry: reports: others (As stated in HPI) Allergic/Immunocompromised: denies: Difficulty Healing, Frequent Infections, Hives, Itching, others Hematologic/Lymphatic: denies: anemia, blood clots, easy bleeding, easy bruising, swollen glands, others Endocrine: denies: excessive hunger, excessive sweating, excessive thirst, excessive urination, flushing, intolerance to cold, intolerance to heat, unexplained weight gain, unexplained weight loss, others Psychiatric: denies: anxiety, bipolar disorder, depression, hopeless, panic disorder, schizophrenia, sleepless, suicidal, others Physical Exam General Appearance: No Apparent Distress HEENT: PERRL/EOMI Neck: Full Range of Motion, Non-Tender, Normal Respiratory: Chest Non-Tender, Lungs Clear, No Accessory Muscle Use, No Respiratory Distress, Normal Breath Sounds Cardiovascular: No Murmur, No Gallop, Regular Rate/Rhythm Breast Exam: Deferred Gastrointestinal: NOT DONE Genitalia: Deferred Pelvic: Deferred Rectal: Deferred Extremities: Normal capillary refill, Normal range of motion Neurologic: Alert, household personal assistant II-XII nml as Tested, No Motor Deficits, Normal Affect, Normal Mood, No Sensory Deficits Cerebellar Function: Normal Reflexes: Normal Skin: Dry, Warm, Other (Mild urticaria noted to bilateral hands. No pustules/drainage noted) Peripheral Pulses: 2+ Radial (R), 2+ Radial (L), 2+ Brachial (R), 2+ Brachial (L) Lymphatic: No Adenopathy Was a procedure done? Was a procedure done?: No Sedation Sedation?: No Differential Diagnosis (INTG) Differential Diagnosis: Abrasion, Cellulitis Differential Diagnosis: Abscess Differential Diagnosis: Puncture Wound X-Ray, Labs, Meds, VS Solu-Medrol 125 mg IM ordered Benadryl 25 mg IM ordered Advised to follow up with PCP in 1-2 days Patient verbalized understanding and agreeable with current plan of care Advised to return to ER immediately if symptoms worsen Time of 1ST Reevaluation: 17:54 Reevaluation 1ST: N/A Patient Education/Counseling: Diagnosis, Treatment, Prognosis, Need For Follow Up Family Education/Counseling: No Family Present SEPSIS Sepsis Screen Physician Orders Diphenhdramine Injection (Benadryl Injec (02/22/25 18:15) Methylprednisolone Sod Succ (Solu Medrol (02/22/25 18:15) Departure 1 Departure Time of Disposition: 18:12 Impression: Primary Impression: Contact dermatitis Qualified Codes: L25.5 - Unspecified contact dermatitis due to plants, except food Disposition: 01 HOME / SELF CARE / HOMELESS Condition: Stable e-Prescriptions Prednisone (Prednisone) 20 Mg Tab 20 MG PO BID for 5 Days, #10 TAB 0 Refills Prov: KYLEE SALDAÑA 02/22/25 Discharged With: Friend Critical Care Note Critical Care Time?: No Stability Stability form required: No Heart Score Heart Score: Heart Score Response (Comments) Value History N/A 0 EKG N/A 0 Age N/A 0 Risk Factors N/A 0 Troponin N/A 0 Total 0 KYLEE SALDAÑA Feb 22, 2025 18:13
[2025-02-22 18:30] VITALS: RESP 17
[2025-02-22] MEDS: methylPREDNISolone SOD SUCC 125 MG/2 ML VL IM ONE (18:40)
[2025-02-22] MEDS: diphenhdrAMINE HCL 50 MG/1 ML VL IM ONE (18:40)
[2025-02-22 18:46] VITALS: BP 115/76; PULSE 83; RESP 16; TEMP 98.7; O2SAT 94
== END 2025-02-22 18:47 | disposition home or self-care (01) ==
LOC: ER 18:00
DX: L25.5 Unspecified contact dermatitis due to plants, except food (principal); F15.90 Other stimulant use, unspecified, uncomplicated; Z79.52 Long term (current) use of systemic steroids; Z79.899 Other long term (current) drug therapy; Z91.040 Latex allergy status; Z91.014 Allergy to mammalian meats
CPT/HCPCS: 96372; 99283; J2919